=== PATIENT | female | born 1930 | race Caucasian/White ===

== ENCOUNTER 2018-05-27 04:12 | Emergency (ER) | payer MEDICARE, OTHER ==
[~2018-05-27] VITALS: Ht 152.4 cm; Wt 81.6 kg
[2018-05-27] MEDS ORDERED: TRAMADOL HCL 50 MG TAB PO ONE (04:30)
--- NOTE | 2018-05-27 05:33 | Diagnostic Imaging Report ---
THORACIC SP 3V, LUMBAR 3 VIEW HISTORY: Fall. COMPARISON: None available. DISCUSSION: Some of the osseous structures are partially obscured by stool and bowel gas. Diffuse osseous demineralization. There are five non-rib bearing lumbar vertebral bodies. Mild rightward curvature of the lumbar spine. Age-indeterminate severe compression deformity of T12. Right hip arthroplasty. Aortic calcifications. Cholecystectomy clips. Disc Spaces: Disc space narrowing at L1-L2 and L2-L3. Facets: Moderate to severe multilevel lumbar facet arthropathy. IMPRESSION: Age-indeterminate severe compression deformity of T12. No acute radiographic abnormality in the lumbar spine. Signed by: DR. Toni Morales MD on 05/27/2018 5:29 AM
[2018-05-27] MEDS ORDERED: ONDANSETRON HCL 4 MG ORAL DISINTEGRATING TAB PO ONE ×2 (06:15)
--- NOTE | 2018-05-27 06:45 | Diagnostic Imaging Report ---
EXAMINATION: Head CT without contrast. HISTORY:Status post fall. COMPARISON:Report of CT brain from 12/28/2007, images not available for comparison at the time of interpretation. TECHNIQUE: Multidetector axial images were obtained from the foramen magnum to the vertex without contrast. The images were reconstructed using brain and bone algorithms. Thin section brain images were reformatted into coronal and sagittal planes. Dose modulation, iterative reconstruction, and/or weight based adjustment of the mA/kV was utilized to reduce the radiation dose to as low as reasonably achievable. Intravenous contrast: None IMAGE QUALITY: Acceptable. FINDINGS: Skull/scalp: Mild left prezygomatic soft tissue and temporal scalp edema/hematoma. Minimal left presacrum at the subcutaneous soft tissue emphysema. No radiopaque foreign body. No acute depressed or displaced calvarial fracture. Multiple calcified and atherosclerotic peripheral scalp vessels. Parenchyma: Nonspecific few, scattered supratentorial white matter patchy hypodensity are likely related to small vessel ischemic changes. No acute hemorrhage, mass or acute major vascular territorial infarct. Arteries: No density suggestive of thrombosis. Atherosclerotic calcification in bilateral carotid siphon. Dural sinuses: No abnormal density suggestive of thrombosis. Ventricles: No hydrocephalus or displacement. Extra-axial spaces: No abnormal density. Brain volume: Generalized age-related cerebral volume loss. Craniocervical junction: No mass, Chiari malformation, or basilar invagination. Sella: No mass. Paranasal/mastoid sinuses: Opacified visualized portion of left maxillary sinus with thickened and sclerotic sinus wall, represents chronic inflammatory process. IMPRESSION: 1. Mild left temporal scalp and prezygomatic soft tissue edema/hematoma with focal left prezygomatic subcutaneous soft tissue laceration. No acute calvarial fracture. 2. No acute posttraumatic intracranial abnormality. 3. Generalized age-related cerebral volume loss and mild supratentorial white matter microvascular ischemic changes. Signed by: Dr. Ina Herrera M.D. on 05/27/2018 6:42 AM
--- NOTE | 2018-05-27 06:50 | Diagnostic Imaging Report ---
History: Status post fall. Comparison studies: None Technique: Axial images were obtained through the cervical region.. Coronal and sagittal images reconstructed from the axial data. Dose modulation, iterative reconstruction, and/or weight based adjustment of the mA/kV was utilized to reduce the radiation dose to as low as reasonably achievable. Intravenous contrast: None Findings: Fractures: None. Soft tissue injuries: None. Atlantoaxial articulation: Intact. Alignment: Loss of normal cervical lordosis is either positional or due to muscle spasm. No scoliosis. 1.5 mm grade 1 anterolisthesis at C4-C5 is likely degenerative. Cervicomedullary junction: No abnormalities. The foramen magnum is patent. Soft tissues: No abnormalities. Vertebrae: No fractures, infection or neoplasm. Diffuse osseous demineralization. Degenerative changes: C4-C5: Mild left foraminal stenosis due to facet and uncovertebral arthrosis. C5-C6: Moderate degenerative disc disease. Moderate right and mild left foraminal stenosis due to uncovertebral arthrosis. C6-C7: Severe degenerative disc disease. Mild left foraminal stenosis due to facet and uncovertebral arthrosis.. IMPRESSION: 1. No acute cervical spine fracture or dislocation. Loss of normal cervical lordosis is either positional or due to muscle spasm. 2. Ligament, spinal cord and or vascular abnormalities cannot be excluded on the basis of this examination. 3. Cervical spondylosis as above. Signed by: Dr. Ina Herrera M.D. on 05/27/2018 6:46 AM
[2018-05-27 07:27] VITALS: BP 124/48
== END 2018-05-27 07:40 | disposition home or self-care (01) ==
LOC: ER 04:12
DX: S00.83XA Contusion of other part of head, initial encounter (principal); S16.1XXA Strain of muscle, fascia and tendon at neck level, initial encounter; W18.30XA Fall on same level, unspecified, initial encounter; Y92.008 Other place in unspecified non-institutional (private) residence as the place of occurrence of the external cause
CPT/HCPCS: 70450; 72072; 72100; 72125; 99283; Q0162

== ENCOUNTER → 2020-10-13 | Outpatient (CLI) | payer MEDICARE | LOC: RAD 11:20 | PROVIDERS: ATTEND Internal Medicine Critical Care Medicine | DX: R06.02 Shortness of breath (principal) | CPT/HCPCS: 71046 ==